=== PATIENT | male | born 1975 | race Hispanic/Latino ===

== ENCOUNTER → 2019-08-04 | Outpatient (CLI) | payer OTHER ==
[~2019-08-04] MED LIST: GADOBENATE DIMEGLUMINE 1 ML IV ONE; IOPAMIDOL 300 MG/ML 15ML VIAL IT ONE; LIDOCAINE HCL 1% LOCAL INJ 20 ML VIAL ONE
--- NOTE | 2019-08-04 11:44 | Diagnostic Imaging Report ---
PROCEDURE: Arthrogram CLINICAL HISTORY: ^SLAP TEAR LT SHOULDER DONOR CENTER TECHNICIAN: Thony Dickinson DO, JD ANESTHESIA: Local lidocaine. DOSE INFORMATION - Ka,r: 3 mGy Estimated Blood Loss: < 5cc Samples: None Device: None PROCEDURE: The risks, benefits, and alternatives to the procedure were discussed with the patient/healthcare proxy. All questions were answered and written informed consent was obtained. A universal timeout was performed prior to starting the procedure. All elements of maximal sterile barrier technique, hand hygiene, skin preparation and sterile techniques were followed. Operator Automated Process images were obtained. Following local 1% lidocaine anesthesia, a 22 gauge spinal needle was advanced to the joint space. Intra-articular positioning was confirmed with injection of 1cc Isovue contrast material. Subsequently, 10 mL of gadolinium arthrogram solution was administered to the joint (containing 7 mL normal saline, 3 mL Isovue, 0.1 mL Multihance gadolinium based contrast). The needle was removed. No immediate postoperative complication. Sterile dressing was placed. IMPRESSION: Successful left shoulder arthrogram. Signed by: Thony Dickinson MD on 08/04/2019 11:41 AM
--- NOTE | 2019-08-04 11:44 | Diagnostic Imaging Report ---
PROCEDURE: Arthrogram CLINICAL HISTORY: ^SLAP TEAR LT SHOULDER SCREW MACHINE SET UP OPERATOR: Thony Dickinson DO, JD ANESTHESIA: Local lidocaine. DOSE INFORMATION - Ka,r: 3 mGy Estimated Blood Loss: < 5cc Samples: None Device: None PROCEDURE: The risks, benefits, and alternatives to the procedure were discussed with the patient/healthcare proxy. All questions were answered and written informed consent was obtained. A universal timeout was performed prior to starting the procedure. All elements of maximal sterile barrier technique, hand hygiene, skin preparation and sterile techniques were followed. Soft Sugar Operator Head images were obtained. Following local 1% lidocaine anesthesia, a 22 gauge spinal needle was advanced to the joint space. Intra-articular positioning was confirmed with injection of 1cc Isovue contrast material. Subsequently, 10 mL of gadolinium arthrogram solution was administered to the joint (containing 7 mL normal saline, 3 mL Isovue, 0.1 mL Multihance gadolinium based contrast). The needle was removed. No immediate postoperative complication. Sterile dressing was placed. IMPRESSION: Successful left shoulder arthrogram. Signed by: Thony Dickinson MD on 08/04/2019 11:41 AM
--- NOTE | 2019-08-04 12:52 | Diagnostic Imaging Report ---
TECHNIQUE: Magnetic resonance arthrogram of the LEFT SHOULDER was performed after intra-articular injected contrast. COMPARISON: None available. HISTORY: Left shoulder pain FINDINGS: MUSCLES AND TENDONS: Rotator Cuff: Tendons: Low-grade articular and interstitial tearing of the of the supraspinatus and anterior infraspinatus. A small perforation may be present. Muscles: No focal muscle atrophy. Biceps Tendon: The long head of the biceps tendon is intact and within the intertubercular groove. GLENOHUMERAL JOINT: Glenoid Labrum: Fraying of the superior labrum. Sublabral foramen. Articular Cartilage: No focal defect. AC JOINT AND ACROMION: No hypertrophic degenerative changes of the acromioclavicular joint. Os acromiale. BONE: No acute fracture. SOFT TISSUES: Otherwise, the soft tissues appear unremarkable. IMPRESSION: Supraspinatus/anterior infraspinatus low-grade articular and interstitial tearing Os acromiale Superior labral fraying Signed by: Dr. Kirk Be M.D. on 08/04/2019 12:48 PM
== END ==
LOC: DX 10:43
PROVIDERS: ATTEND Specialist
DX: S43.432A Superior glenoid labrum lesion of left shoulder, initial encounter (principal)
CPT/HCPCS: 23350; 77002; J2001; Q9967

== ENCOUNTER 2019-09-07 08:00 | Outpatient (RCR) | payer OTHER | END 2019-09-15 | LOC: OT 08:00 | PROVIDERS: ATTEND Specialist | DX: M25.512 Pain in left shoulder (principal); M25.511 Pain in right shoulder ==

== ENCOUNTER → 2019-11-04 | Day surgery (SDC) | payer OTHER ==
[~2019-11-04] MED LIST changes: +ACETAMINOPHEN 1000 MG/100 ML 100 ML IV ONE; +ARIMIDEX1 MG PO; +CEFAZOLIN SOD 1 GM/NS 50ML 100 ML IV ONE; +CLARITIN-D 241 EACH PO; +DEXAMETHASONE SOD PHOS INJ 4 MG/ML VIAL ONE; +EPINEPHRINE 1 MG/ML 30ML VIAL ONE; +FENTANYL CITRATE/PF 100MCG/2 ML INJ ONE; +FLONASE ALLERG9.9 ML INH; -GADOBENATE DIMEGLUMINE 1 ML IV ONE; +HYDRALAZINE HCL 20 MG/ML VIAL ONE; -IOPAMIDOL 300 MG/ML 15ML VIAL IT ONE; +KETOROLAC TROMETHAMINE 30 MG/ML VIAL ONE; +LABETALOL HCL 5 MG/ML 20ML VIAL ONE; +LIDOCAINE 2% /EPINEPHRINE 20 ML SDV INJ ONE; -LIDOCAINE HCL 1% LOCAL INJ 20 ML VIAL ONE; +LIDOCAINE HCL 2% LOCAL INJ 5 ML SDV VIAL INJ ONE; +MIDAZOLAM HCL 2 MG/2 ML VIAL ONE; +ONDANSETRON HCL INJ 2MG/ML 2ML 2 MG/ML VIAL ONE; +PROPOFOL IV EMULSION 10 MG/ML 20 ML VIAL ONE; +ROCURONIUM BROMIDE 10 MG/ML 5ML VIAL IV ONE; +ROPIVACAINE 0.5% 5 MG/ML 30 ML SDV ONE; +SEVOFLURANE INHAL SOLN 250 ML PEN BTL ONE; +SUCCINYLCHOLINE CHLORIDE 20 MG/ML 10ML VIAL ONE; +TESTOSTERONE25 GM SC
[2019-11-04 11:00] VITALS: BP 117/93
--- NOTE | 2019-11-09 22:21 | Operative Report ---
DATE OF PROCEDURE: 11/04/2019 SURGEON: Haja Damon MD PREOPERATIVE DIAGNOSES: Left shoulder impingement, possible left shoulder labral tear. POSTOPERATIVE DIAGNOSES: Left shoulder partial labral tear, left shoulder high-grade partial-thickness rotator cuff tear, left shoulder synovitis, left shoulder chondromalacia glenoid. OPERATIONS AND PROCEDURES PERFORMED: The patient underwent a left shoulder exam under anesthesia, left shoulder arthroscopy, left shoulder debridement of a partial labral tear, left shoulder debridement of synovitis, left shoulder chondroplasty of the glenoid, left shoulder arthroscopic rotator cuff reconstruction, and a left shoulder arthroscopic subacromial decompression, and acromioplasty. SUPERVISOR PACKING ROOM: There was no magistrate assistant. ANESTHESIA: General endotracheal intubation anesthesia. IV FLUIDS: Per the anesthesia record. BLOOD LOSS: Minimal. COMPLICATIONS: None. BRIEF DISCUSSION OF THE PATIENT'S OPERATIVE PROCEDURE: Mr. Gonsales was taken to the operating room and placed in the supine position on the operating table. Following induction of general anesthesia as well as a regional block, the patient's table was converted to a beach chair-type position. Examination of the left shoulder demonstrated full passive range of motion of the shoulder joint. There was no evidence of instability of the shoulder. The patient's shoulder and upper extremity were prepped and draped in surgical fashion. Standard posterior lateral and anterior portals were created without difficulty. The scope was placed through the shoulder joint atraumatically. Examination of the glenohumeral articulation demonstrated chondromalacia of the glenoid. There was also fraying of the labrum anteriorly. There were no loose bodies in the shoulder joint. Examination of the anterior leading edge of the rotator cuff demonstrated a near full-thickness rotator cuff tear. A probe was placed within the shoulder. Examination of the labrum demonstrated anterior fraying without a complete tear. The shaver was placed in the shoulder and the synovitis in the shoulder was debrided. The partially torn anterior labrum was also debrided at this time. A chondroplasty of the glenoid was performed. Attention was then turned to the rotator cuff injury. A shaver was used to debride the insertion site to a bleeding bony bed. An elevator was used to elevate the remaining portion of the rotator cuff, that was attached to the tuberosity of the humerus. The rotator cuff tear was then debrided to healthy tissue. The shoulder was inflated with sterile normal saline. The scope was then transferred to subacromial space. A lateral portal was created from an outside-in technique. Significant bursal inflammation was encountered. A bursectomy was performed. The rotator cuff injury was easily identified. The shaver was used to further debride the insertion site to a bleeding bony bed. A single triple-loaded suture anchor was inserted into the greater tuberosity of the humerus and the suture arms from the anchor were then woven through the rotator cuff tissue. The rotator cuff was then advanced and tied firmly over the greater tuberosity, thus repairing the tear. The coracoacromial ligament was then resected and aggressive acromioplasty was performed. The arm was placed through range of motion and there was no impingement. The shoulder was deflated with sterile normal saline. The portal sites were closed using 4-0 nylon suture. The portal sites were then dressed sterilely and the patient was provided a shoulder immobilizer, awakened, and taken to the Postanesthesia Care Unit in stable condition. MD ARMAAN Robison/NAREN /[id number]
== END | disposition home or self-care (01) ==
LOC: OR 05:50
PROVIDERS: ATTEND Specialist
DX: S43.432A Superior glenoid labrum lesion of left shoulder, initial encounter (principal); S46.092A Other injury of muscle(s) and tendon(s) of the rotator cuff of left shoulder, initial encounter; S46.091A Other injury of muscle(s) and tendon(s) of the rotator cuff of right shoulder, initial encounter; M65.822 Other synovitis and tenosynovitis, left upper arm; M94.212 Chondromalacia, left shoulder; Z11.59 Encounter for screening for other viral diseases; K21.9 Gastro-esophageal reflux disease without esophagitis; Z01.810 Encounter for preprocedural cardiovascular examination; Z01.812 Encounter for preprocedural laboratory examination
CPT/HCPCS: 29821; 29826; 29827; 93005; C1713; J0131; J0330; J0360; J0690; J1100; J1885; J2001 ×2; J2250; J2405; J2704; J2795; J3010; J3490; U0002

== ENCOUNTER 2020-02-03 07:59 | Outpatient (RCR) | payer OTHER ==
[~2020-02-03 07:59] MED LIST changes: -ACETAMINOPHEN 1000 MG/100 ML 100 ML IV ONE; -CEFAZOLIN SOD 1 GM/NS 50ML 100 ML IV ONE; -DEXAMETHASONE SOD PHOS INJ 4 MG/ML VIAL ONE; -EPINEPHRINE 1 MG/ML 30ML VIAL ONE; -FENTANYL CITRATE/PF 100MCG/2 ML INJ ONE; -HYDRALAZINE HCL 20 MG/ML VIAL ONE; -KETOROLAC TROMETHAMINE 30 MG/ML VIAL ONE; -LABETALOL HCL 5 MG/ML 20ML VIAL ONE; -LIDOCAINE 2% /EPINEPHRINE 20 ML SDV INJ ONE; -LIDOCAINE HCL 2% LOCAL INJ 5 ML SDV VIAL INJ ONE; -MIDAZOLAM HCL 2 MG/2 ML VIAL ONE; -ONDANSETRON HCL INJ 2MG/ML 2ML 2 MG/ML VIAL ONE; -PROPOFOL IV EMULSION 10 MG/ML 20 ML VIAL ONE; -ROCURONIUM BROMIDE 10 MG/ML 5ML VIAL IV ONE; -ROPIVACAINE 0.5% 5 MG/ML 30 ML SDV ONE; -SEVOFLURANE INHAL SOLN 250 ML PEN BTL ONE; -SUCCINYLCHOLINE CHLORIDE 20 MG/ML 10ML VIAL ONE
== END 2020-02-15 ==
LOC: OT 07:59
PROVIDERS: ATTEND Specialist
DX: S46.002D Unspecified injury of muscle(s) and tendon(s) of the rotator cuff of left shoulder, subsequent encounter (principal); M25.512 Pain in left shoulder; M25.612 Stiffness of left shoulder, not elsewhere classified; R53.1 Weakness